=== PATIENT | male | born 2000 | race American Indian/Alaskan Native ===

== ENCOUNTER 2023-09-21 02:00 | Emergency (ER) | payer BC ==
[2023-09-21] MEDS ORDERED: Dextrose 5%-Lactated Ringers 1,000 ML ONE (02:12)
[2023-09-21] MEDS: Dextrose 5%-Lactated Ringers 1,000 ML IV SCH ×2 (02:15→03:34)
[2023-09-21] MEDS: Metoclopramide 10 MG/2 ML SDV IVPUSH ONE (02:18)
[2023-09-21 02:25] LABS: BASOPHILS ABSOLUTE AUTO 0.1 K/mm3 (0.0-0.2); EOSINOPHILS ABSOLUTE AUTO 0.4 K/mm3 (0.0-0.4); EOSINOPHILS PERCENT AUTO 4.8 % (0.0-6.0); HEMATOCRIT 44.3 % (42.0-52.0); HEMOGLOBIN 14.8 gm/dl (14.0-18.0); IMMATURE GRAN PERCENT AUTO 1.2 % (0.0-0.4); LYMPHOCYTES ABSOLUTE AUTO 2.5 K/mm3 (1.0-4.8); LYMPHOCYTES PERCENT AUTO 30.3 % (24.0-44.0); MEAN CORPUSCULAR HEMOGLOBIN 29.7 pg (28.0-32.0); MEAN CORPUSCULAR HGB CONC 33.4 g/dl (32.0-36.0); MEAN CORPUSCULAR VOLUME 88.8 fl (83.0-99.0); MEAN PLATELET VOLUME 9.8 fl (9.4-12.4); MONOCYTES ABSOLUTE AUTO 0.7 K/mm3 (0.0-0.8); MONOCYTES PERCENT AUTO 8.1 % (0.0-8.0); NEUTROPHILS ABSOLUTE AUTO 4.4 K/mm3 (1.8-7.7); NEUTROPHILS PERCENT AUTO 54.6 % (41.0-71.0); PLATELET COUNT,PLT 286 K/mm3 (150-400); RED BLOOD CELL COUNT 4.99 M/mm3 (4.52-5.90); WHITE BLOOD CELL COUNT,WBC 8.13 K/mm3 (3.9-11.3)
[2023-09-21 02:47] LABS: ALBUMIN 3.6 g/dl (3.4-5.0); ANION GAP 19.2 (5-15); BILIRUBIN TOTAL 0.3 mg/dL (0.2-1.0); BUN/CREATININE RATIO 8.3 (14-18); CREATININE 1.2 mg/dL (0.7-1.3); EST CRCL DRUG DOSING (CG) 98.85 mL/min; ETHANOL BLOOD MEDICAL 0.25 gm% (0.00); MAGNESIUM 1.5 mg/dL (1.8-2.4); POTASSIUM,K 3.2 mEq/L (3.5-5.1); PROTEIN TOTAL,TP 7.4 g/dl (6.4-8.2)
[2023-09-21] MEDS: Ondansetron 4 MG/2 ML SDV IVPUSH ONE (02:48)
[2023-09-21] MEDS: Ondansetron 4 MG/2 ML SDV ONE (02:50)
[2023-09-21 03:20] LABS: INR 1.04; PROTHROMBIN TIME 11.1 SECONDS (9.7-12.0)
[2023-09-21 03:21] LABS: PTT,PARTIAL THROMBOPLSTIN TIME 27.3 SECONDS (21.7-31.4)
[2023-09-21] MEDS: Diltiazem 25 MG/5 ML SDV IVPUSH ONE ×2 (03:35→06:52)
[2023-09-21] MEDS: Diltiazem 125 MG in Sodium Chloride 0.9% 100 ML IV SCH (03:40)
[2023-09-21] MEDS: Magnesium Sulfate/Water 4 GM in Premix Bag 1 BAG IV ONE (03:49)
[2023-09-21] MEDS: Diltiazem 180 MG Cap.CD PO ONE (06:31)
[2023-09-21] MEDS: Diltiazem 240 MG Cap.ER PO ONE (06:41)
== END 2023-09-21 10:30 | disposition home or self-care (01) ==
LOC: JD.ED 02:00
DX: S06.0X1A Concussion with loss of consciousness of 30 minutes or less, initial encounter (principal); F10.920 Alcohol use, unspecified with intoxication, uncomplicated; I48.91 Unspecified atrial fibrillation; R11.2 Nausea with vomiting, unspecified; Y04.8XXA Assault by other bodily force, initial encounter
CPT/HCPCS: 36415; 70450; 70486; 71045; 72125; 73130; 80053; 80307; 82947; 83690; 83735; 83880; 85025; 85610; 85730; 93005; 96361; 96365; 96366; 96368; 96375; 99285; A9270; J2405; J2765; J3475; J3490; J7121; 93010; 99284